=== PATIENT | male | born 1990 | race Caucasian/White ===

== ENCOUNTER 2024-08-28 21:33 | Emergency (ER) | payer BC | END 2024-08-28 23:46 | disposition short-term general hospital (02) | LOC: CSHERS 21:33 | DX: S01.551A Open bite of lip, initial encounter (principal); S01.511A Laceration without foreign body of lip, initial encounter; I10 Essential (primary) hypertension; W54.0XXA Bitten by dog, initial encounter | CPT/HCPCS: 99283 ==